=== PATIENT | male | born 1940 | race Two or more races ===

== ENCOUNTER 2017-05-07 14:56 | Emergency (ER) | payer OTHER, MEDICAID ==
[2017-05-07 15:10] VITALS: BP 164/98; PULSE 67; RESP 18; TEMP 98.1; O2SAT 94
[2017-05-07 15:49] LABS: LEUKOCYTE ESTERASE,URINE NEGATIVE (NEGATIVE); NITRITE,URINE NEGATIVE (NEGATIVE)
[2017-05-07 15:50] LABS: COLOR RED
[2017-05-07 15:53] LABS: AMORPHOUS PRESENT /hpf (NONE-1+); HYALINE CASTS 25-50 /lpf (0-1); MUCUS 1+ /lpf (NONE-1+); RBC,URINE 50-182 /hpf (0-3); WBC,URINE 15-25 /hpf (0-3)
--- NOTE | 2017-05-07 16:28 | EDPHY ---
H & P Time Seen by Provider: 05/07/17 16:24 HPI/ROS: CHIEF COMPLAINT: Hematuria HISTORY OF PRESENT ILLNESS: The patient is a 76-year-old male presenting with hematuria for the past two days. The patient has associated suprapubic abdominal pain and urinary frequency. He has no history of urinary tract infection or kidney stone. The patient has chronic back pain that is unchanged. He denies fever, nausea, vomiting, or diarrhea. REVIEW OF SYSTEMS: A comprehensive 10 point review of systems is otherwise negative aside from elements mentioned in the history of present illness. Past Medical/Surgical History: Hypertension, CAD s/p stents, Afib with pacemaker, BPH s/p prostate surgery Social History: Visiting from [place]. Burundian speaking. Smoking Status: Former smoker Physical Exam: General Appearance: Alert, pleasant Eyes: Pupils equal and round, no conjunctival pallor or injection ENT, Mouth: Mucous membranes moist Neck: Normal inspection Respiratory: Lungs are clear to auscultation Cardiovascular: Regular rate and rhythm Gastrointestinal: Abdomen is soft and non-tender Back: Mild lumbar tenderness bilaterally Neurological: A&O, nonfocal, normal gait Skin: Warm and dry, no rash Extremities: Nontender, no pedal edema Psychiatric: Mood and affect normal Constitutional: Initial Vital Signs Temperature (C) 36.7 C 05/07/17 15:06 Heart Rate 67 05/07/17 15:06 Respiratory Rate 18 05/07/17 15:06 Blood Pressure 164/98 H 05/07/17 15:06 O2 Sat (%) 94 05/07/17 15:06 O2 Delivery Mode Room Air Allergies/Adverse Reactions: No Known Allergies Allergy (Verified 05/07/17 15:11) Home Medications: Medication Instructions Recorded Albuterol [Ventolin Hfa Inhaler] 2 puffs IH Q4 PRN 05/28/16 Ibuprofen [Motrin (*)] 600 mg PO DAILY PRN 05/28/16 Acetaminophen [Tylenol 325mg (*)] 650 mg PO Q4 PRN #0 tab 06/01/16 Amiodarone HCl 05/07/17 Baclofen 05/07/17 Cefdinir [Omnicef (*)] 300 mg PO BID #20 cap 05/07/17 Diclofenac Sodium 05/07/17 Metoprolol Succinate 05/07/17 Medical Decision Making ED Course/Re-evaluation: Patient presents to the ED with two days of hematuria, frequency, and suprapubic pain. UA c/w UTI. Plan to treat UTI with Omnicef. Urine culture sent. BGL on iSTAT is 121, creat 1.5; no old labs for comparison. d/w pt, understands the need to f/u with PCP. He is safe to be discharged home. PCP referral provided. Differential Diagnosis: Differential diagnosis includes though is not limited to kidney stone, prostatitis, new onset diabetes, DKA. - Data Points Laboratory Results: 05/07/17 05/07/17 16:45 15:40 POC Hgb 14.6 gm/dL gm/dL (13.7-17.5) POC Hct 43 % % (40-51) POC Sodium 142 mEq/L mEq/L (134-144) POC Potassium 4.3 mEq/L mEq/L (3.3-5.0) POC Chloride 109 mEq/L mEq/L (97-110) POC BUN 30 mg/dL H mg/dL (7-23) POC Creatinine 1.5 mg/dL H mg/dL (0.7-1.3) POC Glucose 121 mg/dL H mg/dL (70-100) Urine Color RED Urine Appearance MODERATELY TURBID Urine pH 5.0 (5.0-7.5) Ur Specific [place] 1.020 (1.002-1.030) Urine Protein 2+ H (NEGATIVE) Urine Ketones NEGATIVE (NEGATIVE) Urine Blood 2+ H (NEGATIVE) Urine Nitrate NEGATIVE (NEGATIVE) Urine Bilirubin NEGATIVE (NEGATIVE) Urine Urobilinogen NEGATIVE EU EU (0.2-1.0) Ur Leukocyte Esterase NEGATIVE (NEGATIVE) Urine RBC 50-182 /hpf H /hpf (0-3) Urine WBC 15-25 /hpf H /hpf (0-3) Ur Epithelial Cells NONE SEEN /lpf /lpf (NONE-1+) Amorphous Sediment PRESENT /hpf /hpf (NONE-1+) Hyaline Casts 25-50 /lpf H /lpf (0-1) Urine Mucus 1+ /lpf /lpf (NONE-1+) Urine Glucose 1+ H (NEGATIVE) Point of Care Test Results: 05/07/17 16:45 POC Sodium 142 POC Potassium 4.3 POC Chloride 109 POC BUN 30 H POC Creatinine 1.5 H POC Glucose 121 H Departure - Departure Disposition: Home, Routine, Self-Care Clinical Impression: UTI (urinary tract infection) Qualifiers: Urinary tract infection type: site unspecified Hematuria presence: with hematuria Qualified Code(s): N39.0 - Urinary tract infection, site not specified Condition: Good Instructions: Urinary Tract Infection in Men (ED) Additional Instructions: Take full course of antibiotics as directed. Call back in 2 days for urine culture results. You have been referred to our legal transcriptionist primary care physician below. Please follow up in two days. Eustace el curso completo de antibioticos las indicaciones. Llame en 2 melton para obtener el resultado del cultivo de orina. Usted quigley sido referido a nuestro medico de atencion primaria continua. Por favor robert neha de seguimiento en dos melton. Referrals: Luiza Askew MD [Medical Doctor] - As per Instructions (scallop cutter machine primary care physician) Prescriptions: Cefdinir [Omnicef (*)] 300 mg PO BID #20 cap Print Language: Burundian Report Scribed for: Carol Duong Report Scribed by: Laura Redd Date of Report: 05/07/17 Time of Report: 16:28 Physician Review and Approval Statement: 05/07/17 16:28 Portions of this note were transcribed by a medical territory manager. I personally performed the history, physical exam, and medical decision-making; and confirmed the accuracy of the information in the transcribed note.
== END 2017-05-07 18:00 | disposition home or self-care (01) ==
DX: N39.0 Urinary tract infection, site not specified (principal); B96.89 Other specified bacterial agents as the cause of diseases classified elsewhere; I10 Essential (primary) hypertension; I25.10 Atherosclerotic heart disease of native coronary artery without angina pectoris; Z87.891 Personal history of nicotine dependence; Z95.0 Presence of cardiac pacemaker; Z95.5 Presence of coronary angioplasty implant and graft
CPT/HCPCS: 82947-QW

== ENCOUNTER → 2017-05-29 | Outpatient (CLI) | payer OTHER, MEDICAID | LOC: CIMAGING 11:09 | PROVIDERS: ATTEND Family Medicine | DX: D16.31 Benign neoplasm of short bones of right lower limb (principal); M77.31 Calcaneal spur, right foot; N40.1 Benign prostatic hyperplasia with lower urinary tract symptoms; R32 Unspecified urinary incontinence; R30.0 Dysuria; R10.2 Pelvic and perineal pain | CPT/HCPCS: 73620-PO ==

== ENCOUNTER 2017-06-07 19:58 | Inpatient (IN) | payer OTHER, MEDICAID ==
--- NOTE | 2017-06-07 20:17 | CPEKG ---
Heart Rate: 60 RR Interval: 1000 P-R Interval: 212 QRSD Interval: 94 QT Interval: 472 QTC Interval: 472 QRS [place]: -27 T Wave [place]: 11 EKG Severity - ABNORMAL ECG - EKG Impression: ATRIAL-PACED RHYTHM EKG Impression: CONSIDER LEFT VENTRICULAR HYPERTROPHY Electronically Signed By: Ivone Simmons 07-Jun-2017 23:52:21
[2017-06-07] MEDS ORDERED: ASPIRIN 325 MG TAB PO ONE (20:25)
[2017-06-07 20:54] LABS: % IMMATURE GRANULYOCYTES 0.6 % (0.0-1.1); ABSOLUTE IMMATURE GRANULOCYTES 0.06 10^3/uL (0.00-0.10); ADD DIFF? NO; ADD MORPH? NO; ADD SCAN? NO; ATYPICAL LYMPHOCYTE FLAG 0 (0-99); FRAGMENT RBC FLAG 0 (0-99); HEMATOCRIT 43.5 % (40.0-51.0); HEMOGLOBIN 15.2 g/dL (13.7-17.5); LEFT SHIFT FLG 0 (0-99); LIPEMIA HEMOLYSIS FLAG 90 (0-99); MEAN CELL HEMOGLOBIN 34.6 pg (27.9-34.1); MEAN CELL HEMOGLOBIN CONCENTR. 34.9 g/dL (32.4-36.7); MEAN CELL VOLUME 99.1 fL (81.5-99.8); MEAN PLATELET VOLUME 9.9 fL (8.7-11.7); PLATELET CLUMPS FLAG 0 (0-99); PLATELET COUNT 179 10^3/uL (150-400); RED BLOOD CELL COUNT 4.39 10^6/uL (4.40-6.38); RED CELL DISTRIBUTION WIDTH 13.2 % (11.5-15.2)
[2017-06-07 21:13] LABS: ANION GAP 14 mEq/L (8-16); CALCIUM 8.3 mg/dL (8.5-10.4); CARBON DIOXIDE 17 mEq/l (22-31); CHLORIDE 101 mEq/L (97-110); CREATININE 1.5 mg/dL (0.7-1.3); GLOMERULAR FILTRATION RATE 46; GLUCOSE 158 mg/dL (70-100); POTASSIUM 4.3 mEq/L (3.5-5.2); SODIUM 132 mEq/L (134-144)
--- NOTE | 2017-06-07 21:20 | EDPHY ---
HPI/HX/ROS/PE/MDM Narrative: CHIEF COMPLAINT: Chest pain HISTORY OF PRESENT ILLNESS: The patient is a Bengali-speaking 76 y/o male complaining of chest pain onset 4: 00 PM, five hours ago. He has a history of hypertension, CAD with stents, atrial fibrillation with pacemaker, prostate surgery, and UTI one month ago. He began experiencing ear pain and sore throat four days ago accompanied by a headache. Today around 4:00 PM he began experiencing chest pain and had a single episode in which he felt faint and dizzy like the room was spinning and he stumbled and almost fell. He reports that it is difficult to breath but not painful. He is coughing up sputum. He denies any other associated symptoms. He denies taking blood thinners. No fever, chills, palpitations, vomiting, diarrhea, urinary complaints, lightheadedness. HPI obtained using his granddaughter as calender feeder. Patient in the family declined director of graduate medical education. REVIEW OF SYSTEMS: Aside from elements discussed in the HPI, a comprehensive 10-point review of systems was reviewed and is negative. PAST MEDICAL HISTORY: Hypertension, CAD with stents, atrial fibrillation with pacemaker, pyelonephritis, prostate surgery, and UTI one month ago SOCIAL HISTORY: Lives in [place], visited for the past month, family lives locally. VITAL SIGNS: Reviewed by me GENERAL: Slightly overweight, mild diaphoretic, uncomfortable appearing. HEENT: Atraumatic. Eyes: No icterus, no injection. Mouth: moist mucous membranes. Erythematic without exudate or lesions. Neck: supple with no adenopathy. Ears: Right ear injected, left ear drum bulging. LUNGS: Faint rales especially in the left lung field, no wheezes, rhonchi or rales. CARDIAC: Regular rate and rhythm, no rubs, murmurs or gallops. ABDOMEN: Soft, nontender, nondistended, bowel sounds normal. BACK: No CVA tenderness. EXTREMITIES: No trauma. No edema. Range of motion is normal throughout. NEURO: Alert and oriented, grossly nonfocal. SKIN: Flushed, slightly diaphoretic, no rash. PSYCHIATRIC: Normal mentation, no agitation. Portions of this note were transcribed by a medical records clerk. I personally performed a history, physical exam, medical decision making, and confirmed accuracy of information the transcribed note. ED Course: 12-LEAD EKG: Please see the full report in [facility]. My interpretation: atrial-paced rhythm, nothing ischemic. X-ray: Chest x-ray was obtained. I viewed the images myself on the PACS system. My interpretation of the images is: normal chest. The radiologist interpretation is normal. I discussed the x-ray findings with the patient. The patient is a 76 y/o male complaining of chest pain onset 5 hours ago. He noticed a sore throat and ear pain four days ago that has persisted. Today he began experiencing chest pain and had a near syncopal episode accompanied by dizziness and stumbling. He is coughing up sputum. He denies any other associated symptoms. Patient's EKG is nonischemic but is paced. Chest x-ray demonstrates no infiltrate. Laboratory data is concerning for an elevated troponin at 0.066. Given the patient's left-sided chest discomfort, he received aspirin as well as nitroglycerin and morphine. Patient's course was discussed with the hospitalist service. Patient will be admitted to the PCU. MDM: After history and physical examination, the differential for chest pain was considered, including but not limited to, myocardial ischemia, acute coronary syndrome, pneumonia, pulmonary embolus, chest wall pain, pleural inflammation and pulmonary infectious causes. - Data Points Imaging Results: Imaging Impressions Chest X-Ray 06/07/17 20:25 Impression: Stable cardiomegaly. No evidence for acute cardiopulmonary abnormality. Laboratory Results: Laboratory Results 06/07/17 20:47 06/07/17 20:47 06/07/17 06/07/17 20:47 20:47 WBC 9.58 10^3/uL H 10^3/uL (3.80-9.50) RBC 4.39 10^6/uL L 10^6/uL (4.40-6.38) Hgb 15.2 g/dL g/dL (13.7-17.5) Hct 43.5 % % (40.0-51.0) MCV 99.1 fL fL (81.5-99.8) MCH 34.6 pg H pg (27.9-34.1) MCHC 34.9 g/dL g/dL (32.4-36.7) RDW 13.2 % % (11.5-15.2) Plt Count 179 10^3/uL 10^3/uL (150-400) MPV 9.9 fL fL (8.7-11.7) Neut % (Auto) 82.5 % H % (39.3-74.2) Lymph % (Auto) 10.1 % L % (15.0-45.0) [place] % (Auto) 6.2 % % (4.5-13.0) Eos % (Auto) 0.2 % L % (0.6-7.6) Baso % (Auto) 0.4 % % (0.3-1.7) Nucleat RBC Rel Count 0.0 % % (0.0-0.2) Absolute Neuts (auto) 7.90 10^3/uL H 10^3/uL (1.70-6.50) Absolute Lymphs (auto) 0.97 10^3/uL L 10^3/uL (1.00-3.00) Absolute Monos (auto) 0.59 10^3/uL 10^3/uL (0.30-0.80) Absolute Eos (auto) 0.02 10^3/uL L 10^3/uL (0.03-0.40) Absolute Basos (auto) 0.04 10^3/uL 10^3/uL (0.02-0.10) Absolute Nucleated RBC 0.00 10^3/uL 10^3/uL (0-0.01) Immature Gran % 0.6 % % (0.0-1.1) Immature Gran # 0.06 10^3/uL 10^3/uL (0.00-0.10) Sodium 132 mEq/L L mEq/L (134-144) Potassium 4.3 mEq/L mEq/L (3.5-5.2) Chloride 101 mEq/L mEq/L (97-110) Carbon Dioxide 17 mEq/l L mEq/l (22-31) Anion Gap 14 mEq/L mEq/L (8-16) BUN 31 mg/dL H mg/dL (7-23) Creatinine 1.5 mg/dL H mg/dL (0.7-1.3) Estimated GFR 46 Glucose 158 mg/dL H mg/dL (70-100) Calcium 8.3 mg/dL L mg/dL (8.5-10.4) Troponin I 0.066 ng/mL H ng/mL (0.000-0.034) Medications Given: Enoxaparin Sodium (Lovenox) 100 mg SC BID SUE Stop: 12/05/17 00:29 Last Admin: 06/08/17 00:43 Dose: 100 mg Sodium Chloride (Ns) 1,000 mls @ 75 mls/hr IV CONT SUE Stop: 12/04/17 23:14 Last Admin: 06/07/17 23:32 Dose: 1,000 mls Morphine Sulfate (Morphine) 1 - 2 mg IVP Q1HR PRN PRN Reason: Pain, Severe Unable to Take PO Stop: 06/17/17 23:02 Last Admin: 06/07/17 23:50 Dose: 2 mg Nitroglycerin (Nitrostat) 0.4 mg SL Q5M PRN PRN Reason: Chest Pain Stop: 12/04/17 22:04 Last Admin: 06/07/17 23:30 Dose: 0.4 mg Discontinued Medications Aspirin (Aspirin) 325 mg PO EDNOW ONE Stop: 06/07/17 20:26 Last Admin: 06/07/17 21:38 Dose: 325 mg Morphine Sulfate (Morphine) 4 mg IVP EDNOW ONE Stop: 06/07/17 22:06 Last Admin: 06/07/17 22:19 Dose: 2 mg General Time Seen by Provider: 06/07/17 21:07 Initial Vital Signs: Initial Vital Signs Temperature (C) 36.6 C 06/07/17 20:00 Heart Rate 60 06/07/17 20:00 Respiratory Rate 26 H 06/07/17 20:00 Blood Pressure 130/76 H 06/07/17 20:00 O2 Sat (%) 93 06/07/17 20:00 O2 Delivery Mode Room Air Allergies/Adverse Reactions: No Known Allergies Allergy (Verified 06/07/17 20:07) Home Medications: Medication Instructions Recorded Albuterol [Ventolin Hfa Inhaler] 2 puffs IH Q4 PRN 05/28/16 Ibuprofen [Motrin (*)] 600 mg PO DAILY PRN 05/28/16 Acetaminophen [Tylenol 325mg (*)] 650 mg PO Q4 PRN #0 tab 06/01/16 Amiodarone HCl 05/07/17 Baclofen 05/07/17 Cefdinir [Omnicef (*)] 300 mg PO BID #20 cap 05/07/17 Diclofenac Sodium 05/07/17 Metoprolol Succinate 05/07/17 Departure - Departure Disposition: [facility] Inpatient Acute Clinical Impression: Elevated troponin Chest pain Qualifiers: Chest pain type: other chest pain Qualified Code(s): R07.89 - Other chest pain Condition: Serious Report Scribed for: Ivone Simmons Report Scribed by: Jennifer Paris Date of Report: 06/07/17 Time of Report: 21:36
[2017-06-07 21:25] LABS: TROPONIN I 0.066 ng/mL (0.000-0.034)
[2017-06-07] MEDS ORDERED: NITROGLYCERIN 0.4 MG BTL SL PRN (22:05)
[2017-06-07] MEDS ORDERED: HYDROCODONE/APAP 5/325 TAB PO PRN (23:03)
[2017-06-07] MEDS ORDERED: ONDANSETRON DISINTEGRATING 4 MG TAB PO PRN (23:03)
[2017-06-07] MEDS ORDERED: ACETAMINOPHEN 325 MG TAB PO PRN (23:03)
[2017-06-07] MEDS ORDERED: ONDANSETRON 4 MG/2 ML VIAL IVP PRN (23:03)
[2017-06-07] MEDS: NS 1,000 ML IV SCH (23:32)
[2017-06-08] MEDS ORDERED: ENOXAPARIN 100 MG/ML SYR SC ONE (00:30)
[2017-06-08] MEDS: ENOXAPARIN 100 MG/ML SYR SC SCH ×2 (00:43→08:13)
--- NOTE | 2017-06-08 02:14 | GHP ---
[f rep st] HISTORY AND PHYSICAL DATE OF ADMISSION: 06/07/2017 PCP: In [place]. SOURCE: Patient is able to provide history. He desires family at bedside to translate as he is prim arily Gabonese speaking. I am able to elicit a few questions in Gabonese directly. EMR was also revie wed from patient's previous hospital stay in 05/2016. CHIEF COMPLAINT: Chest pain. HISTORY OF PRESENT ILLNESS: This is a very pleasant 76-year-old gentleman with past medical history significant for coronary artery disease with history of stent, atrial fibrillation, status post pacer , hypertension, BPH, obesity, who presents to the emergency department today with complaints of chest pain that started approximately 4 p.m. today. Patient reports that he was at rest when it started. He is complaining of substernal, lower sternal chest discomfort. He is not able to describe this. It is sharper pressure. He does report that it is worse with any kind of movement or types of liftin g. He denies any pain with increased inspiration. He denies any associated nausea or vomiting. He does have a history of intermittent dyspnea with exertion that did note a little bit earlier today. He also complained of some diaphoresis. Patient's chest pain was maximum of 7/10. He received morph ine and aspirin in the emergency department, which brought his chest pain down to a 5. Patient was g iven an additional dose of morphine on the medical floor, which brought his pain further down to 3/10 to 4/10. Patient denies any history of recent stress testing and no recent episodes of angina prior to today. REVIEW OF SYSTEMS: GENERAL: Patient denies any fevers or chills. SKIN: No rash or sores. ENT: P jean does complain of left ear pain ongoing for several days. He feels like there is increased pre ssure draining down his ear to his throat. He denies any rhinorrhea. He does have some sore throat. No sick contacts. Did feel like he is coming down with a cold in the last 3 days that has slightly gotten better. CV: See HPI. RESPIRATORY: Patient with intermittent history of shortness of breat h at baseline and again today. He denies any cough. GI: Patient without any nausea, vomiting, diar jannet. Does report some mid abdominal discomfort. No melena or hematochezia. : Patient with hist ory of TURP. He does complain of persistent dysuria. He denies any hematuria. He was recently destini bakari for prostatitis and completed a course of antibiotics. MUSCULOSKELETAL: Patient complains of ge neralized osteoarthritis in multiple joints. No myalgias. NEURO: Patient does complain of a little bit of right hip pain, numbness, tingling, but no focal weakness. He complains of pain with any kin d of movement. ALLERGIES: No known drug allergies. MEDICATIONS: Home medications: Metoprolol-XL, Motrin, diclofenac, cefdinir completed, baclofen, ami odarone, albuterol, acetaminophen. PAST MEDICAL HISTORY: Significant for coronary artery disease, status post stent, pacer, atrial fibr illation, hypertension, BPH, morbid obesity, now with a recent BMI in the 30s. PAST SURGICAL HISTORY: Significant for cholecystectomy, TURP, stomach surgery. FAMILY HISTORY: Significant for son with CAD and [place]. Otherwise, no family history of hypertension o r diabetes. SOCIAL HISTORY: Patient is . Lives primarily in [place] with one of his daughters. He is here in [place] visiting for an extended break with his . He quit smoking and drinking. No illicit drugs. COR: Full. PHYSICAL EXAMINATION: VITAL SIGNS: On arrival to the ER, blood pressure 130/76, heart rate 60, resp iratory rate 26, O2 saturation 93% on room air, temperature 36.6. Vitals on the floor: Blood pressu re 138/85, which did decrease to 106/64 after a dose of nitroglycerin. Heart rate 65. O2 saturation 91% on room air. GENERAL: No acute distress. Pleasant, obese gentleman, who is lying quietly in b ed, awake. Family members at bedside. HEAD: Normocephalic, atraumatic. EYES: Extraocular muscles are intact. Pupils equal, round, with decreased reactivity to light bilaterally, but symmetric. So me mild conjunctival injection and some slight scleral icterus. ENT: Left ear is radha out with pe rforation. There is no drainage. No erythema in the canal. No rhinorrhea. Mucous membranes appear moist. Dentition is in fair to poor condition. No oropharyngeal erythema. Right ear clear. CV: Bradycardic with regular rhythm. No murmurs, rubs, or gallops. Slightly distant heart sounds second emilia to body habitus. RESPIRATORY: Lungs are clear to auscultation bilaterally. Poor inspiratory ef fort. GI: Obese, protuberant abdomen with positive bowel sounds. Soft. Patient does complain of s ome tenderness to palpation in the mid abdomen to very light palpation. No rebound or guarding appre ciated. : No suprapubic tenderness to palpation. No Suazo catheter in place. MUSCULOSKELETAL: Patient with some decreased range of motion in his hands and bilateral lower extremities. Right hip: Patient with some difficulty with flexion. Complaining of pain in his right gluteus area. NEURO: Cranial nerves 2-12 are intact and symmetric bilaterally. Patient is awake, alert, and oriented x3. Patient's sensation is intact to upper and lower extremities including the right proximal leg. Sen sation is intact. Patient's notation of weakness is secondary to complaints of pain, but when encour aged, he is able to activate and strength is appropriate. PSYCH: Affect slightly flat. The patient is cooperative. No SI or HI. LABORATORY STUDIES: Sodium 132, potassium 4.3, chloride 101, CO2 of 17, anion gap 14, BUN 31, creati nine is 1.5, GFR is 46. Glucose 158. Calcium 8.3. Troponin 0.066. IMAGING DATA: 1. Chest x-ray: Image and report, reviewed myself, showing cardiomegaly without any acute findings. 2-lead pacer in stable position. 2. EKG: Reviewed myself shows a paced rhythm. Heart rate in the 60s. ASSESSMENT AND PLAN: Pleasant 76-year-old gentleman who presents with a complaint of chest pain. 1. Chest pain. Patient's heart score is 6. He has multiple risk factors; however, chest pain is a little bit atypical. Has not responded to nitroglycerin. Does appear to respond to morphine. Patie nt's blood pressure is not likely to tolerate a pace at this time. Will continue with morphine p.r.n . Nitroglycerin p.r.n. if pressures allow. Patient's troponin is just slightly above normal. He do es have a history of chronic kidney disease and creatinine is at baseline, so possibility for some de creased clearance. However, previous hospital stays patient has not had any elevation in troponin. Will give 1 mg/kg dosing of Lovenox now. Patient was previously on Eliquis during his last hospitali zation, but this has subsequently been discontinued. Patient's chest pain is trending downward and c ontinue to focus on resolution. Will plan to repeat troponins later this morning, and if decline or no significant increase, will further consider stress testing tomorrow. 2. Elevated troponin as noted above. 3. Abdominal pain. Patient does complain of some central abdominal pain to minimal palpation or sup erficial palpation. He has no rebound or guarding at this time and no other abdominal symptoms. Pat ient is afebrile. No history of bleeding per rectum or nausea and vomiting. Patient does point to a distal sternal point of pain. Will check a lipase and add on LFTs to ensure no GI source. 4. Ear pain. Patient is complaining of symptoms similar to eustachian tube dysfunction. His left t ympanic membrane is opacified with a perforation indicating likely recent infection, but no evidence of active ongoing infection at this time. He recently completed antibiotic course for prostate, like ly prostatitis. Will hold off on further antibiotics at this time. 5. Hyponatremia, likely secondary to some hypovolemia. Patient does appear a little bit dry. He wi ll receive some gentle IV fluid hydration. Will plan to repeat a BMP in the morning. His BUN is sli ghtly increased from baseline. 6. Atrial fibrillation, status post pacer. On cardiac monitors. 7. Chronic kidney disease, stage 3. At baseline with creatinine of 1.5. Will continue to monitor. 8. Coronary artery disease. Patient's med rec has not yet been updated, but will check a lipid pane l and once again verify his med rec. May benefit again from being on a statin as tolerated, but agai n we are waiting for LFTs, as well. 9. Benign essential hypertension. Blood pressures at this time controlled. He responds quite rigor ously to nitroglycerin sublingual, and once we can ascertain dosing, resume his metoprolol and amioda jose. 10. Hyperglycemia. Patient denies history of diabetes. Will check an A1c in the morning. BMP is a nonfasting lab. 11. Obesity with BMI of 34.7. Lifestyle and dietary modifications will be encouraged. 12. Prophylaxis. SCDs and therapeutic Lovenox. 13. COR status is full. DISPOSITION: Patient admitted to observation on PCU for cardiac monitoring. /[id number]/MODL
[2017-06-08 03:45] LABS: ALBUMIN 3.4 g/dL (3.5-5.0); BILIRUBIN,TOTAL 0.5 mg/dL (0.1-1.4); BILIRUBIN-CONJUGATED 0.2 mg/dL (0.0-0.5); BILIRUBIN-UNCONJUGATED 0.3 mg/dL (0.0-1.1)
[2017-06-08 05:28] LABS: ANION GAP 8 mEq/L (8-16); CALCIUM 8.2 mg/dL (8.5-10.4); CARBON DIOXIDE 23 mEq/l (22-31); CHLORIDE 104 mEq/L (97-110); CHOLESTEROL 153 mg/dL (140-220); CHOLESTEROL/HDL RATIO 3.56 RATIO (1.00-4.97); CREATININE 1.3 mg/dL (0.7-1.3); GLOMERULAR FILTRATION RATE 54; GLUCOSE 151 mg/dL (70-100); HIGH DENSITY LIPOPROTEIN 43 mg/dL (40-65); POTASSIUM 4.6 mEq/L (3.5-5.2); SODIUM 135 mEq/L (134-144); TRIGLYCERIDE 99 mg/dL (40-150); VERY LOW DENSITY LIPOPROTEINS 19 mg/dL (8-25)
[2017-06-08 05:29] LABS: LDL/HDL RATIO 2.12 RATIO (1.00-3.64); LOW DENSITY LIPOPROTEIN 91 mg/dL (80-100); NON-HIGH DENSITY LIPOPROTEIN 110 mg/dL (90-129)
[2017-06-08 05:35] LABS: TROPONIN I 0.053 ng/mL (0.000-0.034)
[2017-06-08 08:15] LABS: HEMOGLOBIN A1C 6.3 % (4.0-6.0)
--- NOTE | 2017-06-08 08:50 | CPEKG ---
Heart Rate: 60 RR Interval: 1000 P-R Interval: 228 QRSD Interval: 96 QT Interval: 508 QTC Interval: 508 QRS [place]: -25 T Wave [place]: -4 EKG Severity - ABNORMAL ECG - EKG Impression: ATRIAL-PACED RHYTHM EKG Impression: BORDERLINE LEFT AXIS DEVIATION EKG Impression: BORDERLINE T ABNORMALITIES, INFERIOR LEADS EKG Impression: PROLONGED QT INTERVAL EKG Impression: QTc PROLONGATION IS NEW IN COMPARISON TO PRIOR Electronically Signed By: Armond Delarosa 08-Jun-2017 13:43:25
[2017-06-08] MEDS ORDERED: ENOXAPARIN 30 MG/0.3 ML SYR SC SCH (09:00)
--- NOTE | 2017-06-08 11:02 | ASMTCMCOM ---
CM Note CM Note Notes: Pt visiting from [place] w/, staying w/dtr for extended stay. D/W RN. No dc needs anticipated at this time. CM w/f for changes/needs. Date Signed: 06/08/2017 11:01 AM Electronically Signed By:Erica Camacho RN
[2017-06-08 11:39] LABS: COLOR PALE YELLOW; LEUKOCYTE ESTERASE,URINE NEGATIVE (NEGATIVE); NITRITE,URINE NEGATIVE (NEGATIVE)
--- NOTE | 2017-06-08 12:03 | CPEKG ---
Heart Rate: 63 RR Interval: 952 P-R Interval: 220 QRSD Interval: 98 QT Interval: 492 QTC Interval: 504 QRS [place]: -30 T Wave [place]: -2 EKG Severity - ABNORMAL ECG - EKG Impression: ATRIAL-PACED RHYTHM EKG Impression: LEFT AXIS DEVIATION EKG Impression: BORDERLINE T ABNORMALITIES, INFERIOR LEADS EKG Impression: PROLONGED QT INTERVAL Electronically Signed By: Armond Delarosa 08-Jun-2017 13:43:34
[2017-06-08 12:34] LABS: HEMATOCRIT 43.4 % (40.0-51.0); HEMOGLOBIN 15.1 g/dL (13.7-17.5); MEAN CELL HEMOGLOBIN 34.4 pg (27.9-34.1); MEAN CELL HEMOGLOBIN CONCENTR. 34.8 g/dL (32.4-36.7); MEAN CELL VOLUME 98.9 fL (81.5-99.8); RED BLOOD CELL COUNT 4.39 10^6/uL (4.40-6.38); RED CELL DISTRIBUTION WIDTH 13.2 % (11.5-15.2)
[2017-06-08] MEDS: hydrALAZINE 20 MG/ML VIAL IVP PRN ×2 (12:51→22:57)
[2017-06-08] MEDS: NS 1,000 ML IV SCH (12:52)
--- NOTE | 2017-06-08 13:30 | HOSPPROG ---
Hospitalist Progress Note Assessment/Plan: #Chest pain: very difficult to get hx from patient and family with mobile security specialist present. -may be related to hypertension. No WMA on TTE. Obtain records from [facility] #CAD: PCI 2 yrs ago in [place]. Records pending. BB. Add ACEI, statin, ASA. Nuc stress test tomorrow #h/o atrial fibrillation:amiodarone and BB. Cont Eliquis #Accelerated HTN: PRN hydral, restart home meds #Perforated eardrum: no e/o infection. Should heal on own #CKD: monitor Cr with addition of ACEI #Hyponatremia: resolved. #Diet: cardiac #DVT: Eliquis #Disp: warrants inpt admission for telemetry, requiring Lexiscan Subjective: "doesnt feel good" cannot provide specifics Objective: Vital Signs Temp Pulse Resp BP Pulse Ox 36.9 C 70 16 207/98 H 94 06/08/17 12:56 06/08/17 12:56 06/08/17 12:56 06/08/17 12:56 06/08/17 12:56 Laboratory Results 06/08/17 Unknown 06/08/17 03:51 06/07/17 06/08/17 06/09/17 05:59 05:59 05:59 Intake Total 800 Output Total 110 Balance 690 - Physical Exam Constitutional: obese, other (diaphoretic) Ears, Nose, Mouth, Throat: moist mucous membranes, hearing normal, other (left perforated TM) Cardiovascular: regular rate and rhythym, no murmur, rub, or gallop, No edema Respiratory: no respiratory distress, expiratory wheeze, No inspiratory crackles Gastrointestinal: normoactive bowel sounds, soft, non-tender abdomen, no palpable masses Genitourinary: no bladder fullness Skin: warm Musculoskeletal: full muscle strength Neurologic: AAOx3, sensation intact bilaterally, CN II-XII Intact, No weakness, No numbness, No facial droop Psychiatric: interacting appropriately, flat affect ICD10 Worksheet Patient Problems: Problems Problem Status Onset Chest pain Acute Elevated troponin Acute ESBL (extended spectrum beta-lactamase) producing bacteria infection Acute 04/05 Pyelonephritis, acute Acute
[2017-06-08 13:32] LABS: TROPONIN I 0.018 ng/mL (0.000-0.034)
--- NOTE | 2017-06-08 14:29 | ECHO ---
[email or web address] [address] Main: [phone] Fax: Transthoracic Echocardiogram Name: ANA M CONNORS MR#: [id number] Study Date: 06/08/2017 Study Time: 12:19 PM Date of : 1940 Age: 76 year(s) Height: 170.2 cm (67 in.) Weight: 98.88 kg (218 lb.) BSA: 2.1 m2 Gender: Male Examination: Echo Indication: CAD/elevated troponin/eval for WMA, Pacer Image Quality: Contrast: Requested by: Yvette Boles BP: 188 mmHg/89 mmHg Heart Rate: Rhythm: Indication: CAD/elevated troponin/eval for WMA, Pacer Procedure Staff Slag Worker: Azeb Middleton Reading Physician: Shannon Barajas Requesting Provider: Conclusions: Normal size left ventricle. Normal global systolic LV function. The ejection fraction is estimated to be 60-65 %. No regional wall motion abnormality. Grade 1 diastolic dysfunction (abnormal relaxation). Normal size right ventricle. There is a pacemaker lead noted in the right ventricle. Mild mitral valve regurgitation is present. Mild to moderate tricuspid valve regurgitation. The pulmonary artery pressure is normal. Measurements: Chambers Valvular Assessment AV/MV Valvular Assessment TV/PV Normal Normal Normal Name Value Range Name Value Range Name Value Range Ao La (MM): 3.9 cm (2.2 cm-3.7 AV meanP mmHg ( - ) TR Vmax: 2.70 mm/s ( - ) cm) MV E Vmax: 0.48 m/s ( - ) TR PGmax: 29 mmHg ( - ) IVSd (2D): 0.9 cm (0.6 cm-1.1 MV A Vmax: 1.14 m/s ( - ) syst. PAP: 39 mmHg ( - ) cm) MV E/A: 0.42 ( - ) LVDd (2D): 5.5 cm (4.2 cm-5.9 cm) LVDs (2D): 3.6 cm (2.1 cm-4 cm) LVPWd (2D): 1.0 cm (0.6 cm-1 cm) LVEF (MOD4): 55 % (>=55 %) EF Range: 60-65 % Continued Measurements: Chambers Valvular Assessment AV/MV Valvular Assessment TV/PV Patient: ANA M CONNORS Study Date: 06/08/2017 Page 1 of 2 12:19 PM Name Value Name Value Name Value LADs: 4.3 cm MV E/E' Septal: 14.20 CVP (est.): 10 mmHg LADs Lon.0 cm MV E/E' Lateral: 11.30 LA Area: 17.4 cm2 Findings: Left Ventricle: Normal size left ventricle. Mild concentric LV hypertrophy. Normal global systolic LV function. The ejection fraction is estimated to be 60-65 %. No regional wall motion abnormality. Grade 1 diastolic dysfunction (abnormal relaxation). .. Right Ventricle: Normal size right ventricle. There is a pacemaker lead noted in the right ventricle. Left Atrium: The left atrium is normal in size. Right Atrium: The right atrium is normal in size. Mitral Valve: The mitral valve is normal in appearance and function. Mild mitral valve regurgitation is present. Aortic Valve: The aortic valve is normal in appearance and function. Trivial aortic valve regurgitation. Tricuspid Valve: The tricuspid valve is normal in appearance and function. Mild to moderate tricuspid valve regurgitation. The pulmonary artery pressure is normal. Pulmonic Valve: The pulmonic valve is normal in appearance and function. Trivial to mild pulmonic valve regurgitation. Aorta: The aorta is normal. Pericardium: No pericardial effusion. (No Signature Object) Patient: ANA M CONNORS Study Date: 06/08/2017 Page 2 of 2 12:19 PM [id number]
[2017-06-08] MEDS: ASPIRIN 81 MG CHEWABLE TAB PO SCH (14:42)
[2017-06-08] MEDS: METOPROLOL SUCCINATE XR 50 MG TAB PO SCH (14:42)
[2017-06-08] MEDS: ATORVASTATIN CALCIUM 40 MG TAB PO SCH (14:42)
[2017-06-08] MEDS: HYDROCORTISONE 1% CREAM TP SCH ×2 (14:54→20:26)
[2017-06-08] MEDS: LISINOPRIL 20 MG TAB PO SCH (15:17)
--- NOTE | 2017-06-08 15:54 | PDMN ---
Medical Necessity Medical necessity: change to IP; los >2 mn for chest pain, accelerated htn; requires stress test, tele, monitor Cr w/addition of ACEI; comorbid CAD/stent, CKD, AFIB; per progress note & order 06/08/17
--- NOTE | 2017-06-08 17:33 | GCON ---
[f rep st] CONSULTATION DATE OF CONSULTATION: 06/08/2017 PRIMARY CARE: Dr. Calin Caceres, sap architect in [place]. CHIEF COMPLAINT: Chest pain. HISTORY OF PRESENT ILLNESS: We were asked by Dr. Boles to visit with the patient. 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 The patient is a 76-year- old male with a history of atrial fibrillation and pacemaker. He also has hypertension and coronary disease with a history of stenting in [place]. We do not have these records. He is currently in [place] visiting his family. He was admitted through the emergency department [facility] this morning with chest pressure, burning on the left side of his body, diaphoresis. At the pres ent, he is not having these symptoms. He does say that when he rolls over in bed, it brings on right -sided chest pain. He has not had syncope. His first 2 troponins were minimally elevated and the 3rd troponin was negative. He has been quite h ypertensive, with systolics over 200, over the course of the day. REVIEW OF SYSTEMS: Unable due to the patient being a poor historian. PAST MEDICAL HISTORY: 1. Coronary disease with history of PCI to unknown vessel. 2. Hypertension. 3. Atrial fibrillation. 4. Pacemaker. 5. BPH. 6. Obesity. 7. Diabetes. SURGICAL HISTORY: Cholecystectomy and TURP. OUTPATIENT MEDICATIONS: Amiodarone 200 mg daily, Flonase, hydrocortisone cream, Toprol 50 mg daily, Pyridium and tamsulosin. At some point, he was on Eliquis, but I do not see that on his med list her e. SOCIAL HISTORY: Patient's family is at the bedside. He does not smoke cigarettes or drink alcohol. FAMILY HISTORY: Son has coronary disease. PHYSICAL EXAM: VITAL SIGNS: Blood pressure 180/86, heart rate 77, oxygen saturation 94% on room air . He is afebrile. GENERAL: Obese male in no acute distress. HEENT: Sclerae are clear and free of jaundice. Mucous membranes are moist. Normocephalic, atraumatic. CARDIOVASCULAR: JVP is less than 10. Carotids equal and 2+ bilaterally without bruit. Regular rate and rhythm. Soft early systolic ejection murmur at the base. No gallop or rub. LUNGS: Clear to auscultation without wheeze, rhonc hi, or rales. ABDOMEN: Obese, soft, nontender, nondistended. No hepatosplenomegaly. EXTREMITIES: Warm and well-perfused with intact distal pulses and no edema. NEURO: Alert and oriented x3 without gross focal neurologic deficits. LABORATORY DATA: His white count 8, hematocrit 43, platelets are 163. D-dimer 0.64. Sodium 135, po tassium 4.6, chloride 104, bicarb 23, BUN 32, creatinine 1.3. Hemoglobin A1c 6.3. Troponin 0.066, 0 .053 and most recently 0.018. BNP 1140. LDL cholesterol is 91. TSH was normal a year ago. Serial EKGs were reviewed by me and showed A-pacing and isolated inverted T-wave in lead III. No ST abnormalities. Chest x-ray reviewed by me: No acute cardiopulmonary process. Dual-chamber pacemake r in stable position. Echocardiogram reviewed by me: Normal LV size and systolic function. No regional wall motion abnorm alities. ASSESSMENT AND PLAN: 76-year-old male with known coronary disease, status post percutaneous coronary intervention out of state and multiple ongoing cardiac risk factors. He presents with hypertensive urgency and minimally elevated troponins. He is currently chest pain-free with normalization of his troponin. EKG does not show ST deviation. Echocardiogram with normal wall motion. 1. Chest pain: This does sound concerning for angina. I think this was triggered by significant hy pertension. We will add WILL inhibitor and continue his metoprolol. He is on p.r.n. hydralazine. I have added aspirin and statin to his regimen. Plan for further risk stratification with Lexiscan nuc lear stress test tomorrow. 2. History of atrial fibrillation and pacemaker: Currently A-paced. He has been put back on his El iquis. Continue Toprol. He is also on amiodarone. This obviously needs to be followed closely by h is sap architect in [place]. 3. Hypertensive urgency: Add WILL inhibitor. May need up-titration of metoprolol. 4. Elevated hemoglobin A1c: But defer to primary care, but would certainly benefit from metformin. Thank you for allowing us to participate in his care. I will follow with you. /[id number]/MODL
[2017-06-08] MEDS ORDERED: PHENAZOPYRIDINE HCL 200 MG TAB PO SCH (18:00)
[2017-06-08] MEDS: APIXABAN 5 MG TAB PO SCH (20:12)
[2017-06-09 05:21] LABS: HEMOGLOBIN 14.9 g/dL (13.7-17.5); MEAN CELL HEMOGLOBIN 33.6 pg (27.9-34.1); MEAN CELL HEMOGLOBIN CONCENTR. 33.9 g/dL (32.4-36.7); MEAN CELL VOLUME 99.3 fL (81.5-99.8); RED BLOOD CELL COUNT 4.43 10^6/uL (4.40-6.38); RED CELL DISTRIBUTION WIDTH 13.4 % (11.5-15.2)
[2017-06-09 05:42] LABS: CALCIUM 8.7 mg/dL (8.5-10.4); CARBON DIOXIDE 21 mEq/l (22-31); CHLORIDE 107 mEq/L (97-110); CREATININE 1.2 mg/dL (0.7-1.3); GLOMERULAR FILTRATION RATE 59; GLUCOSE 100 mg/dL (70-100); POTASSIUM 4.8 mEq/L (3.5-5.2)
[2017-06-09 08:03] VITALS: RESP 20
[2017-06-09] MEDS: METOPROLOL SUCCINATE XR 50 MG TAB PO SCH (08:34)
[2017-06-09] MEDS: ATORVASTATIN CALCIUM 40 MG TAB PO SCH (08:34)
[2017-06-09] MEDS: LISINOPRIL 20 MG TAB PO SCH (08:35)
[2017-06-09] MEDS: APIXABAN 5 MG TAB PO SCH (08:35)
[2017-06-09] MEDS: ASPIRIN 81 MG CHEWABLE TAB PO SCH (08:35)
[2017-06-09] MEDS ORDERED: TAMSULOSIN HCL 0.4 MG CAP PO SCH (09:00)
[2017-06-09] MEDS ORDERED: AMIODARONE HCL 200 MG TAB PO SCH (09:00)
[2017-06-09] MEDS ORDERED: REGADENOSON 0.4 MG/5 ML SYR IVP ONE (09:48)
[2017-06-09] MEDS: HYDROCORTISONE 1% CREAM TP SCH (10:14)
[2017-06-09 11:11] VITALS: TEMP 98.1
[2017-06-09 12:15] VITALS: BP 120/63; PULSE 75; O2SAT 95
--- NOTE | 2017-06-09 13:57 | ASDISCHSUM ---
Discharge Information Plan Status:Home with No Needs Medically Cleared to Leave: Discharge Date:06/09/2017 01:53 PM CM D/C Disposition:Home, Routine, Self-Care ADT D/C Disposition:Home, Routine, Self-Care Projected Discharge Date:06/09/2017 01:53 PM Transportation at D/C: Discharge Delay Reason: Follow-Up Date:06/09/2017 01:53 PM Discharge Slot: Final Diagnosis: Placement Information Patient Contact Information Contact Name:LASHELL Relationship:Other Address:[address] [place] [address] City:[place] Alternate Phone: State/Zip Code:[place] [address] Email: Financial Information Financial Class: Primary Plan Desc:MEDICARE INPATIENT Primary Plan Number:[id number] Secondary Plan Desc:[employer] Secondary Plan Number:[id number] Assessment Information [facility] CM Progress Note CM Note CM Note Notes: Pt visiting from [place] w/, staying w/dtr for extended stay. D/W RN. No dc needs anticipated at this time. CM w/f for changes/needs. Date Signed: 06/08/2017 11:01 AM Electronically Signed By:Erica Camacho RN Intervention Information Intervention Type:*Incorrect Registration Date of Service:06/08/2017 10:37 AM Patient Type:Inpatient Staff Member:JACINDA Small, Christie Hours: Discipline: Severity: Comment:
--- NOTE | 2017-06-09 15:22 | PDDCSUM ---
Discharge Summary Discharge Summary: DISCHARGE SUMMARY FOLLOW-UP ITEMS: Follow up blood pressure DATE OF ADMISSION: 06/07/2017 DATE OF DISCHARGE: 06/09/2017 DISCHARGE DIAGNOSES: 1. Hypertensive emergency 2. Acute chest pain 3. Chronic coronary artery disease 4. Paroxysmal atrial fibrillation 5. Chronic kidney disease stage 3 6. Acute hyponatremia CONSULTATIONS: Cardiology PROCEDURES / IMAGING: Nuclear medicine stress test demonstrating no inducible ischemia CHIEF COMPLAINT: Acute chest pain SUBJECTIVE: Patient is being discharged completely pain-free PHYSICAL EXAM ON DISCHARGE: Systolic pressure is 130-150, saturating 95% on room air, heart rate 60, afebrile overnight, net even, lungs are clear to auscultation bilaterally, heart rhythm is regular, no murmurs rubs or gallops, no lower extremity edema LABS ON DISCHARGE: Serum sodium 131, creatinine 1.2, hemoglobin 14.9, hemoglobin A1c 6.3%, LDL 91 HOSPITAL COURSE BY PROBLEM: The patient presented with acute chest pain secondary to hypertensive emergency as evidenced by systolic blood pressure of 207 with mildly positive troponin of 0.05, active chest pain, requiring IV antihypertensives as well as initiation of WILL-inhibitor. The patient was seen in consultation by Cardiology and his medications were titrated. He was also initiated on statin and aspirin given his history of coronary artery disease and PCI 2 years ago in [place]. He was continued on his Eliquis for his paroxysmal atrial fibrillation. He had an echocardiogram which demonstrated no focal wall motion abnormalities and he had a new medicine stress test which demonstrated no inducible ischemia. Consequently, working diagnosis hypertensive emergency recommend more aggressive outpatient blood pressure management. He should have an outpatient blood pressure check once he returns home to [place], and he is leaving in 3 days. Patient also monitor his serum sodium level now he is on WILL-inhibitor. His creatinine level is currently after near his baseline. DISCHARGE MEDICATIONS: Please see official discharge medication reconciliation sheet in chart , lisinopril 20 mg daily, atorvastatin 40 mg daily, aspirin 81 mg daily, continue Eliquis 5 mg twice daily, continue metoprolol succinate 50 mg daily. DISCHARGE INSTRUCTIONS: Please follow up with primary care provider upon returning to [place] in 3 days. TIME SPENT: Greater than 30 minutes were spent on direct patient care, as well as discharge planning and preparation.
--- NOTE | 2017-06-09 15:22 | CPR ---
[f rep st] NONINVASIVE CARDIAC PROCEDURE REPORT PROCEDURE: Lexiscan injection of Lexiscan myocardial perfusion imaging study. SUPERVISING CENTRAL STERILE TECH: Dr. Shannon Barajas INDICATION FOR PROCEDURE: Chest pain, known history of CAD, permanent pacemaker. PRE: After obtaining informed consent, the patient is [place]ic-speaking only and professional interpr eter in the room to help, the patient was placed on electrocardiogram. Initial EKG shows atrial pace d with intrinsic ventricular response, leftward axis, nonspecific T-wave abnormalities in inferior le ads. Patient denies chest pain, pressure symptoms suggesting ischemia. Initial blood pressure 140/9 2. Saturation 92%. INJECTION: Patient was given Lexiscan slow IV push followed by nuclear isotope. Within 1 minute of injection, patient reporting a flushing sensation, the patient noted to transition to AV paced occasi onally, but with no other significant electrocardiogram changes, rare premature ventricular contracti on. His vital signs remained stable. Within 5 minutes, reported all symptoms dissipated, final bloo d pressure of 144/84, heart rate 64, saturating 93%. IMPRESSION: A 76-year-old male with known history of coronary artery disease, reporting episodes of chest pressure, being evaluated for cardiac ischemia by Lexiscan MPI study due to pacemaker implantat ion. No significant EKG changes noted with injection, patient did report some mild flushing sensatio n after injection, but dissipated within 5 minutes. Final blood pressure was 114/84, his vital signs are stable. He will finish post Lexiscan MPI imaging in Nuclear Medicine at this time. /[id number]/MODL
[2017-06-09 19:17] LABS: ANION GAP 15 mEq/L (8-16)
[2017-06-09 19:18] LABS: SODIUM 143 mEq/L (134-144)
== END 2017-06-09 13:53 | disposition home or self-care (01) | DRG 305 ==
LOC: INTOOBSV 21:32 → F2W 21:32 → OBSVTOIN 06-08 14:45
PROVIDERS: ADMIT Family Medicine; ATTEND Family Medicine
DX: I16.1 Hypertensive emergency (principal); E87.1 Hypo-osmolality and hyponatremia; I12.9 Hypertensive chronic kidney disease with stage 1 through stage 4 chronic kidney disease, or unspecified chronic kidney disease; N18.3 Chronic kidney disease, stage 3 (moderate); H92.09 Otalgia, unspecified ear; R07.89 Other chest pain; I25.10 Atherosclerotic heart disease of native coronary artery without angina pectoris; I48.0 Paroxysmal atrial fibrillation; N40.0 Benign prostatic hyperplasia without lower urinary tract symptoms; E66.9 Obesity, unspecified; R73.9 Hyperglycemia, unspecified; Z68.34 Body mass index [BMI] 34.0-34.9, adult; Z95.5 Presence of coronary angioplasty implant and graft; Z79.01 Long term (current) use of anticoagulants; Z95.0 Presence of cardiac pacemaker
CPT/HCPCS: 96374; 97161-GP; A9500; G0378; G8978-GP-CH; G8979-GP-CH; G8980-GP-CH; J0360; J1650; J2785